=== PATIENT | female | born 1980 | race Caucasian/White ===

== ENCOUNTER 2016-11-28 10:52 | Emergency (ER) ==
[2016-11-28 11:20] LABS: MANUAL DIFF NEEDED? NO
[2016-11-28 11:22] LABS: BASO% 0.2 % (0.0-0.8); EOS# 0.07 X1000 (0.0-0.7); EOS% 1.6 % (0.0-10.0); HEMATOCRIT 40.4 % (37.0-47.0); HEMOGLOBIN 13.7 g/dL (12.0-16.0); IMM GRAN# 0.01 X1000 (0.0-0.04); IMM GRAN% 0.2 % (0.0-0.5); MCH 32.5 PG (27-31); MCHC 33.9 g/dL (33-37); MCV 95.7 FL (81-99); MONO% 8.9 % (1.7-9.3); MPV 10.4 FL (7.4-10.4); NEUT% 69.1 % (42.2-75.2); PLT 161 X1000 (130-400); RBC 4.22 XMIL (4.2-5.4)
--- NOTE | 2016-11-28 11:34 | PROVIDER DOCUMENTATION ---
HPI-Abdominal Pain/GI Problem <Karo Silverman Megan - Last Filed: 11/28/16 14:57> - General Source: patient - History of Present Illness-ABD Nature of Presenting Problems: Pt is a 36 yof that presents to er with cc of abd pain burning in nature epigastric region. Reports been taking omeprazole with no relief. Reports diarrhea and nausea. Denies n,f,c. Abdominal Pain Onset Location: reports: epigastric Quality of Pain: reports: burning Severity in ED: reports: moderate Onset/Duration: reports: 4 days ago Timing: reports: still present Similar Symptoms Previously?: Yes Recently seen or treated by another doctor?: No <Christiano Arcos - Last Filed: 11/28/16 16:23> - General Chief Complaint: Abdominal Pain Stated Complaint: ABD PAIN Time Seen by Provider: 11/28/16 11:19 Allergies/Adverse Reactions: Patient Allergies Allergy/AdvReac Type Severity Reaction Status Date / Time cefaclor [From Ceclor] Allergy Severe SWELLING Verified 05/16/15 16:19 erythromycin base Allergy Severe SWELLING Verified 05/16/15 16:19 [Erythromycin Base] Home Medications: Home Medication List Medication Instructions Recorded Confirmed Last Taken Type Topiramate [Topamax] 200 mg PO BID 05/16/15 05/16/15 11/27/16 History Nitrofurantoin Monohyd/M-Cryst 100 mg PO BID #20 capsule 11/28/16 Unknown Rx [Macrobid 100 mg Capsule] Omeprazole/Sodium Bicarbonate 40 mg PO DAILY #20 capsule 11/28/16 Unknown Rx [Zegerid 40 mg] Review of Systems - Adult - REVIEW OF SYSTEMS - ADULT Constitutional: denies: chills, fever, fatique Eyes: reports: no symptoms reported Ears, Nose, Mouth & Throat: reports: no symptoms reported Cardiovascular: denies: chest pain, irregular heart rate, orthopnea, syncope Respiratory: denies: cough, shortness of breath, wheezing Gastrointestinal: reports: abdominal pain, diarrhea, nausea. denies: difficulty swallowing, frequent heartburn, poor appetite, vomiting Genitourinary: reports: no symptoms reported Musculoskeletal: denies: bone pain, joint pain, joint swelling Integumentary: reports: no symptoms reported Neurological: reports: no symptoms reported Psychiatric: reports: no symptoms reported Endocrine: reports: no symptoms reported Hematologic/Lymphatic: reports: no symptoms reported Allergic/Immunologic: reports: no symptoms reported All Other Systems: Reviewed and Negative <ArcosChristiano - Last Filed: 11/28/16 16:23> Past History - Adult - PAST MEDICAL HISTORY-ADULT Review of Records: reports: Nursing Assessment Review Major Childhood Illnesses: reports: denies history Cardiovascular: reports: denies history Neurological: reports: Seizures/Epilepsy - PRIOR SURGERIES/PROCEDURES Surgical/Procedure History: reports: hysterectomy, BTL, , other ( oopherectomy) - PRIOR HOSPITALIZATIONS Prior Hospitalizations: reports: none - IMMUNIZATION STATUS Childhood Immunizations: See Nurse Assessment Flu Vaccine: See Nurse Assessment - FAMILY HISTORY Family History: reviewed, not pertinent - SOCIAL HISTORY Smoking: denies Substance Use: none/never <ArcosChristiano - Last Filed: 11/28/16 16:23> Physical Exam-General - PHYSICAL EXAM-ADULT Initial Vital Signs Reviewed: Yes - CONSTITUTIONAL General Appearance: appears well, alert, no apparent distress - EYES Eyes: PERRL/EOMI - NECK Neck: non-tender, full range of motion, supple, normal inspection - RESPIRATORY Respiratory: chest non-tender, lungs clear, normal breath sounds, no pleuratic chest pain, no respiratory distress, no accessory muscle use - CARDIOVASCULAR Cardiovascular: regular rate, rhythm - GASTROINTESTINAL (ABDOMEN) Abdominal Exam: soft, no organomegaly, tenderness (ttp epigastric) - MUSCULOSKELETAL Back Exam: normal inspection, no CVA tenderness, no vertebral tenderness Extremity: normal range of motion, non-tender, normal gait - SKIN Integumentary: normal color, normal turgor, warm/dry - PSYCHIATRIC Psych/Mental Status: normal mood/affect, normal thought content, normal thought process, oriented x 3 <Christiano Arcos - Last Filed: 11/28/16 16:23> Progress - PLAN OF CARE/RESULTS Progress/Plan/Lab Results: 1450: Discussed patient care with Dr. Sewell <Karo Silverman - Last Filed: 11/28/16 14:57> - PLAN OF CARE/RESULTS Progress/Plan/Lab Results: Orders Category Date Time Status NPO Diet 11/28/16 10:56 Active AMYLASE [CHEM] Stat Lab 11/28/16 11:14 Received CBC WITH ELECTRONIC DIFF [HEME] Stat Lab 11/28/16 11:14 Completed COMPREHENSIVE METABOLIC PANEL [CHEM] Stat Lab 11/28/16 11:14 Received LIPASE [CHEM] Stat Lab 11/28/16 11:14 Received TEST-URINE [PREG] Stat Lab 11/28/16 11:[address] W/POSS RFLX CULT [URINALYSIS] Stat Lab 11/28/16 10:56 Uncollected Vital Signs - 24 hr 11/28/16 11/28/16 10:56 11:17 Temperature 98.5 F Pulse Rate 80 Respiratory 22 Rate Blood Pressure 102/85 O2 Sat by Pulse 100 Oximetry Laboratory Tests 11/28/16 11:14 WBC 4.50 L RBC 4.22 Hgb 13.7 Hct 40.4 MCV 95.7 MCH 32.5 H MCHC 33.9 RDW Std Deviation 12.9 Plt Count 161 MPV 10.4 Immature Gran % (Auto) 0.2 Neut % (Auto) 69.1 Lymph % (Auto) 20.0 L [place] % (Auto) 8.9 Eos % (Auto) 1.6 Baso % (Auto) 0.2 Immature Gran # (Auto) 0.01 Neut # (Auto) 3.11 Lymph # (Auto) 0.90 L [place] # (Auto) 0.40 Eos # (Auto) 0.07 Baso # (Auto) 0.01 Laboratory Tests 11/28/16 11/28/16 11/28/16 11:14 11:14 12:49 WBC 4.50 L RBC 4.22 Hgb 13.7 Hct 40.4 MCV 95.7 MCH 32.5 H MCHC 33.9 RDW Std Deviation 12.9 Plt Count 161 MPV 10.4 Immature Gran % (Auto) 0.2 Neut % (Auto) 69.1 Lymph % (Auto) 20.0 L [place] % (Auto) 8.9 Eos % (Auto) 1.6 Baso % (Auto) 0.2 Immature Gran # (Auto) 0.01 Neut # (Auto) 3.11 Lymph # (Auto) 0.90 L [place] # (Auto) 0.40 Eos # (Auto) 0.07 Baso # (Auto) 0.01 Sodium 144 Potassium 3.7 Chloride 111 H Carbon Dioxide 23 L Anion Gap 10 BUN 10 Creatinine 0.8 Estimated GFR/1.73 m2 > 60 BUN/Creatinine Ratio 13 Glucose 117 H Calculated Osmolality 287 Calcium 9.0 Total Bilirubin 0.40 AST 13 ALT 7 L Alkaline Phosphatase 82 Creatine Kinase Troponin T Total Protein 6.5 Albumin 4.1 Globulin 2.0 Albumin/Globulin Ratio 2.0 Amylase 44 Lipase 51 Urine Source CLEAN CATCH Urine Color YELLOW Urine Clarity CLEAR Urine pH 7.0 Ur Specific [place] 1.005 Urine Protein TRACE A Urine Ketones NEGATIVE Urine Blood 1+ A Urine Nitrite NEGATIVE Urine Bilirubin NEGATIVE Urine Urobilinogen NORMAL Urine Microscopic RBC <10 Urine WBC 2+ A Urine Microscopic WBC 10-20 A Ur Epithelial Cells >10 A Urine Bacteria 2+ Urine Glucose NEGATIVE Urine Test 11/28/16 11/28/16 11/28/16 12:49 14:17 14:17 WBC RBC Hgb Hct MCV MCH MCHC RDW Std Deviation Plt Count MPV Immature Gran % (Auto) Neut % (Auto) Lymph % (Auto) [place] % (Auto) Eos % (Auto) Baso % (Auto) Immature Gran # (Auto) Neut # (Auto) Lymph # (Auto) [place] # (Auto) Eos # (Auto) Baso # (Auto) Sodium Potassium Chloride Carbon Dioxide Anion Gap BUN Creatinine Estimated GFR/1.73 m2 BUN/Creatinine Ratio Glucose Calculated Osmolality Calcium Total Bilirubin AST ALT Alkaline Phosphatase Creatine Kinase 35 Troponin T < 0.010 Total Protein Albumin Globulin Albumin/Globulin Ratio Amylase Lipase Urine Source Urine Color Urine Clarity Urine pH Ur Specific [place] Urine Protein Urine Ketones Urine Blood Urine Nitrite Urine Bilirubin Urine Urobilinogen Urine Microscopic RBC Urine WBC Urine Microscopic WBC Ur Epithelial Cells Urine Bacteria Urine Glucose Urine Test NEGATIVE Laboratory Tests 11/28/16 11/28/16 11/28/16 11:14 11:14 12:49 WBC 4.50 L RBC 4.22 Hgb 13.7 Hct 40.4 MCV 95.7 MCH 32.5 H MCHC 33.9 RDW Std Deviation 12.9 Plt Count 161 MPV 10.4 Immature Gran % (Auto) 0.2 Neut % (Auto) 69.1 Lymph % (Auto) 20.0 L [place] % (Auto) 8.9 Eos % (Auto) 1.6 Baso % (Auto) 0.2 Immature Gran # (Auto) 0.01 Neut # (Auto) 3.11 Lymph # (Auto) 0.90 L [place] # (Auto) 0.40 Eos # (Auto) 0.07 Baso # (Auto) 0.01 Sodium 144 Potassium 3.7 Chloride 111 H Carbon Dioxide 23 L Anion Gap 10 BUN 10 Creatinine 0.8 Estimated GFR/1.73 m2 > 60 BUN/Creatinine Ratio 13 Glucose 117 H Calculated Osmolality 287 Calcium 9.0 Total Bilirubin 0.40 AST 13 ALT 7 L Alkaline Phosphatase 82 Creatine Kinase Troponin T Total Protein 6.5 Albumin 4.1 Globulin 2.0 Albumin/Globulin Ratio 2.0 Amylase 44 Lipase 51 Urine Source CLEAN CATCH Urine Color YELLOW Urine Clarity CLEAR Urine pH 7.0 Ur Specific [place] 1.005 Urine Protein TRACE A Urine Ketones NEGATIVE Urine Blood 1+ A Urine Nitrite NEGATIVE Urine Bilirubin NEGATIVE Urine Urobilinogen NORMAL Urine Microscopic RBC <10 Urine WBC 2+ A Urine Microscopic WBC 10-20 A Ur Epithelial Cells >10 A Urine Bacteria 2+ Urine Glucose NEGATIVE Urine Test 11/28/16 11/28/16 11/28/16 12:49 14:17 14:17 WBC RBC Hgb Hct MCV MCH MCHC RDW Std Deviation Plt Count MPV Immature Gran % (Auto) Neut % (Auto) Lymph % (Auto) [place] % (Auto) Eos % (Auto) Baso % (Auto) Immature Gran # (Auto) Neut # (Auto) Lymph # (Auto) [place] # (Auto) Eos # (Auto) Baso # (Auto) Sodium Potassium Chloride Carbon Dioxide Anion Gap BUN Creatinine Estimated GFR/1.73 m2 BUN/Creatinine Ratio Glucose Calculated Osmolality Calcium Total Bilirubin AST ALT Alkaline Phosphatase Creatine Kinase 35 Troponin T < 0.010 Total Protein Albumin Globulin Albumin/Globulin Ratio Amylase Lipase Urine Source Urine Color Urine Clarity Urine pH Ur Specific [place] Urine Protein Urine Ketones Urine Blood Urine Nitrite Urine Bilirubin Urine Urobilinogen Urine Microscopic RBC Urine WBC Urine Microscopic WBC Ur Epithelial Cells Urine Bacteria Urine Glucose Urine Test NEGATIVE - CT/MRI 1 CT Study: Abdomen, Pelvis Impression: Abnormal (bilateral nonobstructing nephrolithiasis. other incidental nonacute findings detailed above but no definite acute pathology.) <Christiano Arcos - Last Filed: 11/28/16 16:23> Departure - Departure Time of Disposition Order: 14:06 Certified Medical Emergency: Emergent <Karo Silverman - Last Filed: 11/28/16 14:57> - Departure Time of Disposition Order: 16:23 Certified Medical Emergency: Emergent <Christiano Arcos - Last Filed: 11/28/16 16:23> - Departure DIAGNOSIS: Epigastric pain Disposition: HOME 01 Condition: Stable Additional Instructions: ED Follow Up Instructions: You have been treated by a care provider in the Emergency Department. These instructions are being provided to you so you can have an understanding of how to care for yourself upon discharge. Upon discharge from the Emergency Department, you are responsible for making arrangements for follow-up care by a physician of your choice. Take all prescribed medications as directed. Return to the Emergency Department immediately for any new or worsening symptoms. You may call the Physician Referral phone number at [phone] to obtain a list of Physicians who are taking new patients. Prescriptions: Nitrofurantoin Monohyd/M-Cryst [Macrobid 100 mg Capsule] 100 mg PO BID #20 capsule Omeprazole/Sodium Bicarbonate [Zegerid 40 mg] 40 mg PO DAILY #20 capsule Referrals: None,PCP [Primary Care Provider] - Clementine Dubose MD [STAFF PHYSICIAN] - Forms: Return to School/Parent Work Instructions: Nitrofurantoin tablets or capsules, Heartburn, Omeprazole tablets (OTC) Attestation - Physician/ MELISSA Attestation Patient care was provided by Advanced Practice Provider:: Yes Advanced Practice Provider:: Karo Silverman Advanced Practice Provider documentation review:: The Mid-level provider documentation, treatment plan and medical decision making was reviewed by the physician who agrees with all treatment and medical decision making by the [facility]. <Karo Silverman - Last Filed: 11/28/16 14:57> - Scribe Verification/Attestation Scribe:: Christiano Arcos Acting as Scribe for:: Karo Silverman Scribe documention review:: This chart was documented by a scribe and accurately reflects the service the provider performed and the decisions made by the provider. <Christiano Arcos - Last Filed: 11/28/16 16:23> Physician Attestation
[2016-11-28 11:37] LABS: AGAP 10; ALBUMIN 4.1 g/dL (3.5-5.0); ALKALINE PHOSPHATASE 82 U/L (32-104); AMYLASE 44 U/L (20-200); BUN 10 mg/dL (8-22); CHLORIDE 111 mmol/L (98-107); COSMO 287; GOT 13 U/L (10-30); GPT 7 U/L (10-36); LIPASE 51 U/L (13-60); POTASSIUM 3.7 mmol/L (3.5-5.1); SODIUM 144 mmol/L (136-145); TCO2 23 mmol/L (25-35); TOTAL PROTEIN 6.5 g/dL (6.3-8.3)
[2016-11-28 12:55] LABS: URINE SOURCE CLEAN CATCH
[2016-11-28 13:07] LABS: BILIRUBIN URINE NEGATIVE (NEGATIVE); BLOOD URINE 1+ (NEGATIVE); CLARITY CLEAR (CLEAR); COLOR YELLOW; GLUCOSE URINE NEGATIVE (NEGATIVE); LEUKOCYTES URINE 2+ (NEGATIVE); NITRITE URINE NEGATIVE (NEGATIVE); PROTEIN URINE TRACE mg/dL (NEGATIVE); SP GRAVITY URINE 1.005; UROBILINOGEN URINE NORMAL
[2016-11-28 13:08] LABS: URINE CULTURE PL NEEDED? YES; URINE EPITHELIAL CELLS >10 /HPF (<10); URINE RBC <10 /HPF (<10)
[2016-11-28] MEDS ORDERED: ZOFRAN ODT PO ONE (13:28)
--- NOTE | 2016-11-28 13:49 | EKG Report ---
Test Performed on : 11/28/2016 1:34:49 PM Test Reason : epigastric burning Blood Pressure : / mmHG Vent. Rate : 067 BPM Atrial Rate : 067 BPM P-R Int : 130 ms QRS Dur : 076 ms QT Int : 422 ms P-R-T Axes : -22 090 040 degrees QTc Int : 445 ms Normal sinus rhythm. Rightward axis Borderline ECG When compared with ECG of 28-NOV-2016 13:34, (Unconfirmed) Sinus rhythm. has replaced Junctional rhythm. Unconfirmed Result
[2016-11-28] MEDS ORDERED: ZEGERID 20 MG PO ONE (14:08)
[2016-11-28 14:14] VITALS: BP 104/73
--- NOTE | 2016-11-28 16:06 | Diag Imaging Result Document ---
PROCEDURE NAME: CT ABD/PELVIS W/ IV CONT ONLY - 11/28/2016 CT ABDOMEN AND PELVIS WITH IV CONTRAST: COMPARISON: 11/09/2013. FINDINGS: There are several nonobstructing intrarenal stones bilaterally. There is minimal prominence of the left renal collecting system as compared to the right. However, this is stable and is assumed to be chronic. There is no evidence of acute hydronephrosis. There is no evidence of appendicitis. There is trace free fluid in the pelvis, usually physiologic. 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 There is no evidence of bowel obstruction. The urinary bladder is unremarkable. No discrete adnexal masses are appreciated. No focal inflammatory changes or free abdominal gas is identified. The remainder of the solid viscera of the abdomen and pelvis and the remainder of the GI tract is essentially unremarkable. IMPRESSION: 1. Bilateral nonobstructing nephrolithiasis. 2. Other incidental/nonacute findings detailed above but no definite acute pathology.
[2016-11-28] MEDS ORDERED: NORCO-7.5 PO ONE (16:42)
[2016-11-28] MEDS ORDERED: TORADOL IM STA (16:52)
== END 2016-11-28 17:17 | disposition home or self-care (01) ==
LOC: P.ED 10:52
DX: R10.13 Epigastric pain (principal); N20.0 Calculus of kidney; R19.7 Diarrhea, unspecified; R11.0 Nausea; R10.816 Epigastric abdominal tenderness; R56.9 Unspecified convulsions; Z79.899 Other long term (current) drug therapy
CPT/HCPCS: 36415; 74177; 80053; 81001; 81025; 82150; 82550; 83690; 84484; 85025; 87088; 93005; 96372; J1885; Q9967

== ENCOUNTER 2016-12-09 11:39 | Emergency (ER) ==
[2016-12-09] MEDS ORDERED: DILAUDID IM ONE (11:53)
[2016-12-09] MEDS ORDERED: SODIUM CHLORIDE 0.9% INJ ONE (11:54)
[2016-12-09] MEDS ORDERED: PHENERGAN IV ONE (11:54)
[2016-12-09] MEDS ORDERED: NS 1,000 ML IV ONE (11:54)
[2016-12-09] MEDS ORDERED: MORPHINE IV ONE (11:54)
--- NOTE | 2016-12-09 12:02 | PROVIDER DOCUMENTATION ---
HPI-Abdominal Pain/GI Problem - General Source: patient - History of Present Illness-ABD Nature of Presenting Problems: Pt is 36 y/o F presents to the ED with LLQ. Pt states pain radiates to mid abdomen and back. Pt states chronic back pain and takes perc 10s and it has not helped pain. Pt states N but denies V. Pt state LMP was earlier this month. Pt denies F but has chills. Abdominal Pain Onset Location: reports: LLQ Pain Radiation: reports: back, other (mid abdomen) Quality of Pain: reports: cramping Severity in ED: reports: severe Onset/Duration: reports: this morning Timing: reports: still present, intermittent Activities at Onset: reports: light activity Exposure to sick contacts?: No Modifying Factors: improves with: nothing Associated Symptoms: reports: back/neck pain (back), fever/chills (chills), nausea, vomiting. denies: anxiety, arm pain, chest pain, constipation, cough, diaphoresis, diarrhea, dizziness, EENT symptoms, fatigue, genitourinary problems , headaches, heartburn, joint pain, loss of appetite, malaise, muscle aches, sinus congestion/drainage, rash, seizure, shortness of breath, sensory/motor loss, pain with inspiration, swelling/mass in abdomen, syncope, weakness, trouble walking Last BM: unsure Dark Stools Present?: reports: none noticed Rectal Bleeding: reports: none Rectal Pain: reports: none Emesis Description: reports: clear Bruising or Bleeding Gums?: No Similar Symptoms Previously?: No Recently seen or treated by another doctor?: No <Mee Quezada - Last Filed: 12/09/16 11:56> <Melina Jennings - Last Filed: 12/09/16 14:06> - General Chief Complaint: Abdominal Pain Stated Complaint: ABD PAIN Time Seen by Provider: 12/09/16 11:49 Allergies/Adverse Reactions: Patient Allergies Allergy/AdvReac Type Severity Reaction Status Date / Time cefaclor [From Ceclor] Allergy Severe SWELLING Verified 12/09/16 11:45 erythromycin base Allergy Severe SWELLING Verified 12/09/16 11:45 [Erythromycin Base] Home Medications: Home Medication List Medication Instructions Recorded Confirmed Last Taken Type Topiramate [Topamax] 200 mg PO BID 05/16/15 12/09/1617 History Oxycodone HCl/Acetaminophen 1 each PO PRN PRN 12/03/16 12/09/16 Unknown History [Percocet 10-325 mg Tablet] Pantoprazole [Protonix] 40 mg PO DAILY@0700 12/03/16 12/09/16 Unknown History Pregabalin [Lyrica] 25 mg PO HS 12/03/16 12/09/16 Unknown History Sertraline HCl [Zoloft] 100 mg PO DAILY 12/03/16 12/09/16 Unknown History Sucralfate 1 gm PO 4XDAY 12/03/16 12/09/16 Unknown History Dicyclomine [Bentyl] 10 mg PO TID AC #30 capsule 12/09/16 Unknown Rx Naloxegol Oxalate [Movantik] 12.5 mg PO DAILY #20 tablet 12/09/16 Unknown Rx Sulfamethoxazole/Trimethoprim 1 each PO BID #10 tablet 12/09/16 Unknown Rx [Bactrim Ds Tablet] Review of Systems - Adult - REVIEW OF SYSTEMS - ADULT Constitutional: reports: chills. denies: fever Eyes: reports: no symptoms reported Ears, Nose, Mouth & Throat: reports: no symptoms reported Cardiovascular: reports: no symptoms reported Respiratory: reports: no symptoms reported Gastrointestinal: reports: abdominal pain (LLQ), nausea, vomiting. denies: diarrhea Genitourinary: reports: no symptoms reported Musculoskeletal: reports: back pain. denies: bone pain, joint pain Integumentary: reports: no symptoms reported Neurological: reports: no symptoms reported Psychiatric: reports: no symptoms reported Endocrine: reports: no symptoms reported Hematologic/Lymphatic: reports: no symptoms reported Allergic/Immunologic: reports: no symptoms reported All Other Systems: Reviewed and Negative <Mee Quezada - Last Filed: 12/09/16 11:56> Past History - Adult - PAST MEDICAL HISTORY-ADULT Review of Records: reports: Nursing Assessment Review, Medications Reviewed, Social history reviewed & non-contributory. Major Childhood Illnesses: reports: denies history Cardiovascular: reports: denies history Respiratory: reports: denies history Gastrointestinal: reports: denies history Obstetrical/Gynecological: reports: denies history Genitourinary: reports: denies history Musculoskeletal: reports: denies history Neurological: reports: Seizures/Epilepsy Endocrine/Immune: reports: denies history Other Conditions: reports: denies history - PRIOR SURGERIES/PROCEDURES Surgical/Procedure History: reports: hysterectomy, BTL, , other ( oopherectomy) - PRIOR HOSPITALIZATIONS Prior Hospitalizations: reports: none - IMMUNIZATION STATUS Childhood Immunizations: See Nurse Assessment Flu Vaccine: See Nurse Assessment - FAMILY HISTORY Family History: reviewed, not pertinent - SOCIAL HISTORY Smoking: denies Substance Use: denies Living Situation: family <Mee Quezada - Last Filed: 12/09/16 11:56> Physical Exam-General - PHYSICAL EXAM-ADULT Initial Vital Signs Reviewed: Yes - CONSTITUTIONAL General Appearance: alert, severe distress, anxious - EYES Eyes: PERRL/EOMI, pink conjunctivae, fundi clear, no AV nicking - HEAD, EARS, NOSE, MOUTH & THROAT HENMT: normocephalic/atraumatic, moist mucous membranes, normal ENT inspection, TMs normal, pharynx normal - NECK Neck: non-tender, full range of motion, supple, normal inspection - RESPIRATORY Respiratory: chest non-tender, lungs clear, normal breath sounds, no pleuratic chest pain, no respiratory distress, no accessory muscle use - CARDIOVASCULAR Cardiovascular: normal peripheral pulses, regular rate, rhythm, no edema, no gallop, no JVD, no murmur - GASTROINTESTINAL (ABDOMEN) Abdominal Exam: normal bowel sounds, soft, no organomegaly, no pulsatile mass, guarding, tenderness (LLQ) - LYMPHATIC Lymphatic: no adenopathy - MUSCULOSKELETAL Back Exam: normal inspection, no CVA tenderness, no vertebral tenderness Extremity: normal range of motion, non-tender, normal gait, normal inspection, no pedal edema, no calf tenderness, normal capillary refill - SKIN Integumentary: normal color, normal turgor, warm/dry - NEUROLOGIC Neurologic: grossly normal - PSYCHIATRIC Psych/Mental Status: oriented x 3, anxious, tearful <Mee Quezada - Last Filed: 12/09/16 11:56> Progress - PLAN OF CARE/RESULTS Progress/Plan/Lab Results: Orders Category Date Time Status Saline Loc NOW Care 12/09/16 11:53 Active NPO Diet 12/09/16 11:[address] ABD/PELVIS W/ IV CONT ONLY [CT] Stat Exams 12/09/16 11:53 Ordered AMYLASE [CHEM] Stat Lab 12/09/16 11:49 Ordered CBC WITH ELECTRONIC DIFF [HEME] Stat Lab 12/09/16 11:49 Ordered COMPREHENSIVE METABOLIC PANEL [CHEM] Stat Lab 12/09/16 11:49 Ordered LIPASE [CHEM] Stat Lab 12/09/16 11:[address] W/POSS RFLX CULT [URINALYSIS] Stat Lab 12/09/16 11:49 Uncollected 0.9% Sodium Chloride Inj [Ns] 1,000 ml Med 12/09/16 11:54 Active IV 999 mls/hr Hydromorphone [Dilaudid] Med 12/09/16 11:53 Discontinued 0.5 mg IM NOW ONE Morphine Med 12/09/16 11:54 Discontinued 2 mg IV NOW ONE Promethazine [Phenergan] Med 12/09/16 11:54 Discontinued 12.5 mg IV NOW ONE Sodium Chloride 0.9% Med 12/09/16 11:54 Discontinued 10 ml INJ NOW ONE Vital Signs - 24 hr 12/09/16 11:40 Temperature 98.7 F Pulse Rate 81 Respiratory 16 Rate Blood Pressure 124/87 O2 Sat by Pulse 99 Oximetry <Mee Quezada - Last Filed: 12/09/16 11:56> - PLAN OF CARE/RESULTS Progress/Plan/Lab Results: Vital Signs Temp Pulse Resp BP Pulse Ox 12/09/16 11:40 98.7 F 81 16 124/87 99 cefaclor [From Ceclor] Allergy (Severe, Verified 12/09/16 11:45) SWELLING erythromycin base [Erythromycin Base] Allergy (Severe, Verified 12/09/16 11:45) SWELLING Topiramate [Topamax] 200 mg PO BID 05/16/15 Oxycodone HCl/Acetaminophen [Percocet 10-325 mg Tablet] 1 each PO PRN PRN Pantoprazole [Protonix] 40 mg PO DAILY@0700 12/03/16 Pregabalin [Lyrica] 25 mg PO HS 12/03/16 Sertraline HCl [Zoloft] 100 mg PO DAILY 12/03/16 Sucralfate 1 gm PO 4XDAY 12/03/16 Dietary Diet NPO Start FriDec 09 1149 Laboratory 12/09/16 12/09/16 12/09/16 13:25 12:07 12:07 WBC 4.80 RBC 4.11 L Hgb 13.3 Hct 38.9 MCV 94.6 MCH 32.4 H MCHC 34.2 RDW Std Deviation 13.2 Plt Count 163 MPV 9.3 Immature Gran % (Auto) 0.0 Neut % (Auto) 54.2 Lymph % (Auto) 30.6 [place] % (Auto) 13.8 H Eos % (Auto) 0.8 Baso % (Auto) 0.6 Immature Gran # (Auto) 0.00 Neut # (Auto) 2.60 Lymph # (Auto) 1.47 [place] # (Auto) 0.66 H Eos # (Auto) 0.04 Baso # (Auto) 0.03 Sodium 138 Potassium 3.4 L Chloride 107 Carbon Dioxide 22 L Anion Gap 9 BUN 10 Creatinine 0.7 Estimated GFR/1.73 m2 > 60 BUN/Creatinine Ratio 14 Glucose 75 Calculated Osmolality 273 Calcium 9.0 Total Bilirubin 0.20 AST 13 ALT 8 L Alkaline Phosphatase 69 Total Protein 6.5 Albumin 4.3 Globulin 2.0 Albumin/Globulin Ratio 2.0 Amylase 48 Lipase 51 Urine Source CLEAN CATCH Urine Color YELLOW Urine Clarity SL. CLOUDY A Urine pH 7.0 Ur Specific [place] 1.010 Urine Protein TRACE A Urine Ketones NEGATIVE Urine Blood 4+ Urine Nitrite NEGATIVE Urine Bilirubin NEGATIVE Urine Urobilinogen NORMAL Urine WBC TRACE A Urine Glucose NEGATIVE Orders Category Date Time Status Saline Loc NOW Care 12/09/16 11:53 Active NPO Diet 12/09/16 11:49 Active FLAT/UPRIGHT ABD/1 VIEW CHEST [RAD] Stat Exams 12/09/16 12:07 Completed AMYLASE [CHEM] Stat Lab 12/09/16 12:07 Completed CBC WITH ELECTRONIC DIFF [HEME] Stat Lab 12/09/16 12:07 Completed COMPREHENSIVE METABOLIC PANEL [CHEM] Stat Lab 12/09/16 12:07 Completed LIPASE [CHEM] Stat Lab 12/09/16 12:[address] W/POSS RFLX CULT [URINALYSIS] Stat Lab 12/09/16 13:25 Results 0.9% Sodium Chloride Inj [Ns] 1,000 ml Med 12/09/16 11:54 Discontinued IV 999 mls/hr Hydromorphone [Dilaudid] Med 12/09/16 11:53 Discontinued 0.5 mg IM NOW ONE Morphine Med 12/09/16 11:54 Discontinued 2 mg IV NOW ONE Promethazine [Phenergan] Med 12/09/16 11:54 Discontinued 12.5 mg IV NOW ONE Sodium Chloride 0.9% Med 12/09/16 11:54 Discontinued 10 ml INJ NOW ONE patient has had multiple CT scans, with most recent being within the last couple weeks. Will not repeat due normal lab work - REASSESSMENT Reassessment #1 Time Reassessed: 12:23 (Pain much improved at this point, patient resting comfortably) Status: improving <Melina Jennings - Last Filed: 12/09/16 14:06> Departure <Mee Quezada - Last Filed: 12/09/16 11:56> - Departure Time of Disposition Order: 14:02 Certified Medical Emergency: Emergent <Melina Jennings - Last Filed: 12/09/16 14:06> - Departure DIAGNOSIS: Acute UTI Abdominal pain Qualifiers: Abdominal location: left lower quadrant Qualified Code(s): R10.32 - Left lower quadrant pain Constipation Qualifiers: Constipation type: slow transit constipation Qualified Code(s): K59.01 - Slow transit constipation Disposition: HOME 01 Condition: Stable Additional Instructions: Follow up with your GI doctor for your endoscopy. ED Follow Up Instructions: You have been treated by a care provider in the Emergency Department. These instructions are being provided to you so you can have an understanding of how to care for yourself upon discharge. Upon discharge from the Emergency Department, you are responsible for making arrangements for follow-up care by a physician of your choice. Take all prescribed medications as directed. Return to the Emergency Department immediately for any new or worsening symptoms. You may call the Physician Referral phone number at [phone] to obtain a list of Physicians who are taking new patients. Prescriptions: Sulfamethoxazole/Trimethoprim [Bactrim Ds Tablet] 1 each PO BID #10 tablet Dicyclomine [Bentyl] 10 mg PO TID AC #30 capsule Naloxegol Oxalate [Movantik] 12.5 mg PO DAILY #20 tablet Referrals: None,PCP [Primary Care Provider] - Attestation - Scribe Verification/Attestation Scribe:: Mee Quezada Acting as Scribe for:: Melina Jennings Scribe documention review:: This chart was documented by a scribe and accurately reflects the service the provider performed and the decisions made by the provider. <Mee Quezada - Last Filed: 12/09/16 11:56> Physician Attestation
[2016-12-09 12:07] LABS: MANUAL DIFF NEEDED? NO
[2016-12-09 12:10] LABS: BASO% 0.6 % (0.0-0.8); EOS# 0.04 X1000 (0.0-0.7); EOS% 0.8 % (0.0-10.0); HEMATOCRIT 38.9 % (37.0-47.0); HEMOGLOBIN 13.3 g/dL (12.0-16.0); LYMPH# 1.47 X1000 (1.2-3.4); LYMPH% 30.6 % (20.5-51.1); MCH 32.4 PG (27-31); MCHC 34.2 g/dL (33-37); MCV 94.6 FL (81-99); MONO# 0.66 X1000 (0.11-0.59); MONO% 13.8 % (1.7-9.3); MPV 9.3 FL (7.4-10.4); NEUT% 54.2 % (42.2-75.2); PLT 163 X1000 (130-400); RBC 4.11 XMIL (4.2-5.4)
[2016-12-09 12:27] LABS: AGAP 9; ALBUMIN 4.3 g/dL (3.5-5.0); ALKALINE PHOSPHATASE 69 U/L (32-104); AMYLASE 48 U/L (20-200); BUN 10 mg/dL (8-22); CHLORIDE 107 mmol/L (98-107); COSMO 273; GOT 13 U/L (10-30); GPT 8 U/L (10-36); LIPASE 51 U/L (13-60); POTASSIUM 3.4 mmol/L (3.5-5.1); SODIUM 138 mmol/L (136-145); TCO2 22 mmol/L (25-35); TOTAL PROTEIN 6.5 g/dL (6.3-8.3)
--- NOTE | 2016-12-09 12:42 | Diag Imaging Result Document ---
PROCEDURE NAME: FLAT/UPRIGHT ABD/1 VIEW CHEST - 12/09/2016 FLAT AND UPRIGHT AND CHEST, FOUR VIEWS: COMPARISON: The chest is compared to 09/09/2016. FINDINGS: The lungs are well expanded. The heart is not enlarged. No pneumonia. No free air beneath the diaphragm. No bowel obstruction. No organomegaly. Mild scoliosis. IMPRESSION: No acute abnormality.
[2016-12-09 13:42] LABS: URINE SOURCE CLEAN CATCH
[2016-12-09 14:01] LABS: BILIRUBIN URINE NEGATIVE (NEGATIVE); BLOOD URINE 4+ (NEGATIVE); CLARITY SL. CLOUDY (CLEAR); COLOR YELLOW; GLUCOSE URINE NEGATIVE (NEGATIVE); LEUKOCYTES URINE TRACE (NEGATIVE); NITRITE URINE NEGATIVE (NEGATIVE); PROTEIN URINE TRACE mg/dL (NEGATIVE); UROBILINOGEN URINE NORMAL
[2016-12-09 14:09] LABS: URINE CULTURE PL NEEDED? YES; URINE EPITHELIAL CELLS <10 /HPF (<10); URINE RBC 20-40 /HPF (<10); URINE WBC <10 /HPF (<10)
[2016-12-09 15:11] VITALS: BP 132/066
[2016-12-09] MEDS ORDERED: MORPHINE IM ONE (15:46)
--- NOTE | 2016-12-09 16:21 | PROVIDER DOCUMENTATION ---
HPI-Abdominal Pain/GI Problem - General Source: patient - History of Present Illness-ABD Nature of Presenting Problems: Pt is a 36 yof who came to the ED with a cc of abdominal pain. Pt reports she was here earlier today and was not satisfied with her 1st visit. Pt reports she wanted to come back because her abdominal pain has not resolved. Pt reports she has an appointment with Dr. Mccoy for an EGD in three days. Abdominal Pain Onset Location: reports: epigastric, suprapubic, generalized abdomen Pain Radiation: reports: no radiation Quality of Pain: reports: sharp Severity in ED: reports: mild Onset/Duration: reports: unsure Timing: reports: still present Activities at Onset: reports: none Last BM: unsure Dark Stools Present?: reports: none noticed Rectal Bleeding: reports: bleeding without stool Bruising or Bleeding Gums?: No Similar Symptoms Previously?: Yes Recently seen or treated by another doctor?: Yes <Ana Paula Chowdhury - Last Filed: 12/09/16 16:17> <Tomasa Al - Last Filed: 12/09/16 16:48> - General Chief Complaint: Abdominal Pain Stated Complaint: ABD PAIN Time Seen by Provider: 12/09/16 11:49 Allergies/Adverse Reactions: Patient Allergies Allergy/AdvReac Type Severity Reaction Status Date / Time cefaclor [From Ceclor] Allergy Severe SWELLING Verified 12/09/16 11:45 erythromycin base Allergy Severe SWELLING Verified 12/09/16 11:45 [Erythromycin Base] Home Medications: Home Medication List Medication Instructions Recorded Confirmed Last Taken Type Topiramate [Topamax] 200 mg PO BID 05/16/15 12/09/16 11/27/16 History Oxycodone HCl/Acetaminophen 1 each PO PRN PRN 12/03/16 12/09/16 Unknown History [Percocet 10-325 mg Tablet] Pantoprazole [Protonix] 40 mg PO DAILY@0700 12/03/16 12/09/16 Unknown History Pregabalin [Lyrica] 25 mg PO HS 12/03/16 12/09/16 Unknown History Sertraline HCl [Zoloft] 100 mg PO DAILY 12/03/16 12/09/16 Unknown History Sucralfate 1 gm PO 4XDAY 12/03/16 12/09/16 Unknown History Dicyclomine [Bentyl] 10 mg PO TID AC #30 capsule 12/09/16 Unknown Rx Naloxegol Oxalate [Movantik] 12.5 mg PO DAILY #20 tablet 12/09/16 Unknown Rx Sulfamethoxazole/Trimethoprim 1 each PO BID #10 tablet 12/09/16 Unknown Rx [Bactrim Ds Tablet] Review of Systems - Adult - REVIEW OF SYSTEMS - ADULT Constitutional: denies: chills, fever Eyes: denies: decreased vision, double vision Ears, Nose, Mouth & Throat: reports: no symptoms reported Cardiovascular: denies: chest pain, heart murmur Respiratory: reports: no symptoms reported Gastrointestinal: reports: abdominal pain. denies: diarrhea, nausea, vomiting Genitourinary: reports: no symptoms reported Musculoskeletal: reports: no symptoms reported Integumentary: reports: no symptoms reported Neurological: reports: no symptoms reported Psychiatric: reports: no symptoms reported Endocrine: reports: no symptoms reported Hematologic/Lymphatic: reports: no symptoms reported Allergic/Immunologic: reports: no symptoms reported All Other Systems: Reviewed and Negative <Ana Paula Chowdhury - Last Filed: 12/09/16 16:17> Past History - Adult - PAST MEDICAL HISTORY-ADULT Review of Records: reports: Old Records Reviewed, Nursing Assessment Review Major Childhood Illnesses: reports: denies history Cardiovascular: reports: denies history Respiratory: reports: denies history Gastrointestinal: reports: denies history Obstetrical/Gynecological: reports: denies history Genitourinary: reports: denies history Musculoskeletal: reports: denies history Neurological: reports: Seizures/Epilepsy Endocrine/Immune: reports: denies history Other Conditions: reports: denies history - PRIOR SURGERIES/PROCEDURES Surgical/Procedure History: reports: hysterectomy, BTL, , other ( oopherectomy) - PRIOR HOSPITALIZATIONS Prior Hospitalizations: reports: none - IMMUNIZATION STATUS Childhood Immunizations: See Nurse Assessment Flu Vaccine: See Nurse Assessment - FAMILY HISTORY Family History: reviewed, not pertinent - SOCIAL HISTORY Smoking: denies Substance Use: denies Living Situation: family <Ana Paula Chowdhury - Last Filed: 12/09/16 16:17> Physical Exam-General - PHYSICAL EXAM-ADULT Initial Vital Signs Reviewed: Yes - CONSTITUTIONAL General Appearance: alert, mild distress - EYES Eyes: PERRL/EOMI, pink conjunctivae - HEAD, EARS, NOSE, MOUTH & THROAT HENMT: normocephalic/atraumatic, moist mucous membranes - NECK Neck: non-tender, full range of motion - RESPIRATORY Respiratory: chest non-tender, lungs clear, normal breath sounds - CARDIOVASCULAR Cardiovascular: normal peripheral pulses, regular rate, rhythm - GASTROINTESTINAL (ABDOMEN) Abdominal Exam: soft, tenderness (Epigastric, suprapubic, all over) - MUSCULOSKELETAL Back Exam: normal inspection Extremity: normal range of motion - SKIN Integumentary: normal turgor - NEUROLOGIC Neurologic: grossly normal - PSYCHIATRIC Psych/Mental Status: normal mood/affect, normal thought content, normal thought process, oriented x 3 <Ana Paula Chowdhury - Last Filed: 12/09/16 16:17> Progress - PLAN OF CARE/RESULTS Progress/Plan/Lab Results: Vital Signs - 24 hr 12/09/16 12/09/16 11:40 14:00 Temperature 98.7 F 98.7 F Pulse Rate 81 78 Respiratory 16 20 Rate Blood Pressure 124/87 132/066 O2 Sat by Pulse 99 99 Oximetry Orders Category Date Time Status Saline Loc NOW Care 12/09/16 11:53 Active NPO Diet 12/09/16 11:49 Completed FLAT/UPRIGHT ABD/1 VIEW CHEST [RAD] Stat Exams 12/09/16 12:07 Completed RENAL STONE SEARCH [CT] Stat Exams 12/09/16 15:46 Taken AMYLASE [CHEM] Stat Lab 12/09/16 12:07 Completed CBC WITH ELECTRONIC DIFF [HEME] Stat Lab 12/09/16 12:07 Completed COMPREHENSIVE METABOLIC PANEL [CHEM] Stat Lab 12/09/16 12:07 Completed LIPASE [CHEM] Stat Lab 12/09/16 12:[address] W/POSS RFLX CULT [URINALYSIS] Stat Lab 12/09/16 13:25 Completed URINE CULTURE [RM] Routine Lab 12/09/16 14:09 Received URINE DRUG SCREEN PL Stat Lab 12/09/16 15:31 Ordered 0.9% Sodium Chloride Inj [Ns] 1,000 ml Med 12/09/16 11:54 Discontinued IV 999 mls/hr Hydromorphone [Dilaudid] Med 12/09/16 11:53 Discontinued 0.5 mg IM NOW ONE Morphine Med 12/09/16 11:54 Discontinued 2 mg IV NOW ONE Morphine Med 12/09/16 15:46 Discontinued 4 mg IM NOW ONE Promethazine [Phenergan] Med 12/09/16 11:54 Discontinued 12.5 mg IV NOW ONE Sodium Chloride 0.9% Med 12/09/16 11:54 Discontinued 10 ml INJ NOW ONE Laboratory Tests 12/09/16 12/09/16 12/09/16 12:07 12:07 13:25 WBC 4.80 RBC 4.11 L Hgb 13.3 Hct 38.9 MCV 94.6 MCH 32.4 H MCHC 34.2 RDW Std Deviation 13.2 Plt Count 163 MPV 9.3 Immature Gran % (Auto) 0.0 Neut % (Auto) 54.2 Lymph % (Auto) 30.6 [place] % (Auto) 13.8 H Eos % (Auto) 0.8 Baso % (Auto) 0.6 Immature Gran # (Auto) 0.00 Neut # (Auto) 2.60 Lymph # (Auto) 1.47 [place] # (Auto) 0.66 H Eos # (Auto) 0.04 Baso # (Auto) 0.03 Sodium 138 Potassium 3.4 L Chloride 107 Carbon Dioxide 22 L Anion Gap 9 BUN 10 Creatinine 0.7 Estimated GFR/1.73 m2 > 60 BUN/Creatinine Ratio 14 Glucose 75 Calculated Osmolality 273 Calcium 9.0 Total Bilirubin 0.20 AST 13 ALT 8 L Alkaline Phosphatase 69 Total Protein 6.5 Albumin 4.3 Globulin 2.0 Albumin/Globulin Ratio 2.0 Amylase 48 Lipase 51 Urine Source CLEAN CATCH Urine Color YELLOW Urine Clarity SL. CLOUDY A Urine pH 7.0 Ur Specific [place] 1.010 Urine Protein TRACE A Urine Ketones NEGATIVE Urine Blood 4+ Urine Nitrite NEGATIVE Urine Bilirubin NEGATIVE Urine Urobilinogen NORMAL Urine Microscopic RBC 20-40 A Urine WBC TRACE A Urine Microscopic WBC <10 Ur Epithelial Cells <10 Urine Bacteria 1+ Urine Glucose NEGATIVE <Ana Paula Chowdhury - Last Filed: 12/09/16 16:17> - PLAN OF CARE/RESULTS Progress/Plan/Lab Results: Laboratory Results - last 24 hr 12/09/16 12/09/16 12/09/16 12:07 12:07 13:25 WBC 4.80 RBC 4.11 L Hgb 13.3 Hct 38.9 MCV 94.6 MCH 32.4 H MCHC 34.2 RDW Std Deviation 13.2 Plt Count 163 MPV 9.3 Immature Gran % (Auto) 0.0 Neut % (Auto) 54.2 Lymph % (Auto) 30.6 [place] % (Auto) 13.8 H Eos % (Auto) 0.8 Baso % (Auto) 0.6 Immature Gran # (Auto) 0.00 Neut # (Auto) 2.60 Lymph # (Auto) 1.47 [place] # (Auto) 0.66 H Eos # (Auto) 0.04 Baso # (Auto) 0.03 Sodium 138 Potassium 3.4 L Chloride 107 Carbon Dioxide 22 L Anion Gap 9 BUN 10 Creatinine 0.7 Estimated GFR/1.73 m2 > 60 BUN/Creatinine Ratio 14 Glucose 75 Calculated Osmolality 273 Calcium 9.0 Total Bilirubin 0.20 AST 13 ALT 8 L Alkaline Phosphatase 69 Total Protein 6.5 Albumin 4.3 Globulin 2.0 Albumin/Globulin Ratio 2.0 Amylase 48 Lipase 51 Urine Source CLEAN CATCH Urine Color YELLOW Urine Clarity SL. CLOUDY A Urine pH 7.0 Ur Specific [place] 1.010 Urine Protein TRACE A Urine Ketones NEGATIVE Urine Blood 4+ Urine Nitrite NEGATIVE Urine Bilirubin NEGATIVE Urine Urobilinogen NORMAL Urine Microscopic RBC 20-40 A Urine WBC TRACE A Urine Microscopic WBC <10 Ur Epithelial Cells <10 Urine Bacteria 1+ Urine Glucose NEGATIVE Orders Category Date Time Status Saline Loc NOW Care 12/09/16 11:53 Active NPO Diet 12/09/16 11:49 Completed FLAT/UPRIGHT ABD/1 VIEW CHEST [RAD] Stat Exams 12/09/16 12:07 Completed RENAL STONE SEARCH [CT] Stat Exams 12/09/16 15:46 Completed AMYLASE [CHEM] Stat Lab 12/09/16 12:07 Completed CBC WITH ELECTRONIC DIFF [HEME] Stat Lab 12/09/16 12:07 Completed COMPREHENSIVE METABOLIC PANEL [CHEM] Stat Lab 12/09/16 12:07 Completed LIPASE [CHEM] Stat Lab 12/09/16 12:[address] W/POSS RFLX CULT [URINALYSIS] Stat Lab 12/09/16 13:25 Completed URINE CULTURE [RM] Routine Lab 12/09/16 14:09 Re[address] URINE DRUG SCREEN PL Stat Lab 12/09/16 13:25 Received 0.9% Sodium Chloride Inj [Ns] 1,000 ml Med 12/09/16 11:54 Discontinued IV 999 mls/hr Hydromorphone [Dilaudid] Med 12/09/16 11:53 Discontinued 0.5 mg IM NOW ONE Morphine Med 12/09/16 11:54 Discontinued 2 mg IV NOW ONE Morphine Med 12/09/16 15:46 Discontinued 4 mg IM NOW ONE Potassium Chloride E.r. [Klor-Con] Med 12/09/16 16:22 Discontinued 40 meq PO NOW ONE Promethazine [Phenergan] Med 12/09/16 11:54 Discontinued 12.5 mg IV NOW ONE Sodium Chloride 0.9% Med 12/09/16 11:54 Discontinued 10 ml INJ NOW ONE Vital Signs Temp Pulse Resp BP Pulse Ox 12/09/16 14:00 98.7 F 78 20 132/066 99 12/09/16 11:40 98.7 F 81 16 124/87 99 cefaclor [From Ceclor] Allergy (Severe, Verified 12/09/16 11:45) SWELLING erythromycin base [Erythromycin Base] Allergy (Severe, Verified 12/09/16 11:45) SWELLING Topiramate [Topamax] 200 mg PO BID 05/16/15 Oxycodone HCl/Acetaminophen [Percocet 10-325 mg Tablet] 1 each PO PRN PRN Pantoprazole [Protonix] 40 mg PO DAILY@0700 12/03/16 Pregabalin [Lyrica] 25 mg PO HS 12/03/16 Sertraline HCl [Zoloft] 100 mg PO DAILY 12/03/16 Sucralfate 1 gm PO 4XDAY 12/03/16 Dicyclomine [Bentyl] 10 mg PO TID AC #30 capsule 12/09/16 Naloxegol Oxalate [Movantik] 12.5 mg PO DAILY #20 tablet 12/09/16 Sulfamethoxazole/Trimethoprim [Bactrim Ds Tablet] 1 each PO BID #10 tablet 12/09 Laboratory 12/09/16 12/09/16 12/09/16 13:25 12:07 12:07 WBC 4.80 RBC 4.11 L Hgb 13.3 Hct 38.9 MCV 94.6 MCH 32.4 H MCHC 34.2 RDW Std Deviation 13.2 Plt Count 163 MPV 9.3 Immature Gran % (Auto) 0.0 Neut % (Auto) 54.2 Lymph % (Auto) 30.6 [place] % (Auto) 13.8 H Eos % (Auto) 0.8 Baso % (Auto) 0.6 Immature Gran # (Auto) 0.00 Neut # (Auto) 2.60 Lymph # (Auto) 1.47 [place] # (Auto) 0.66 H Eos # (Auto) 0.04 Baso # (Auto) 0.03 Sodium 138 Potassium 3.4 L Chloride 107 Carbon Dioxide 22 L Anion Gap 9 BUN 10 Creatinine 0.7 Estimated GFR/1.73 m2 > 60 BUN/Creatinine Ratio 14 Glucose 75 Calculated Osmolality 273 Calcium 9.0 Total Bilirubin 0.20 AST 13 ALT 8 L Alkaline Phosphatase 69 Total Protein 6.5 Albumin 4.3 Globulin 2.0 Albumin/Globulin Ratio 2.0 Amylase 48 Lipase 51 Urine Source CLEAN CATCH Urine Color YELLOW Urine Clarity SL. CLOUDY A Urine pH 7.0 Ur Specific [place] 1.010 Urine Protein TRACE A Urine Ketones NEGATIVE Urine Blood 4+ Urine Nitrite NEGATIVE Urine Bilirubin NEGATIVE Urine Urobilinogen NORMAL Urine Microscopic RBC 20-40 A Urine WBC TRACE A Urine Microscopic WBC <10 Ur Epithelial Cells <10 Urine Bacteria 1+ Urine Glucose NEGATIVE - REASSESSMENT Reassessment #1 Time Reassessed: 16:44 Status: improving (Pt looks comfortable and walks around at ER befoer the Morphine shot given. I consulted Dr. Cox in person for her pelvic fluids. Dr. Burton believes it was an ovulation vs. Ovarian cyst rupture, and compared to her most recent CT scan. The amount of the free fluid is not very concerned. I explained the findings to pt and her , both expressed understanding. Pt has Percocet 10mg as home meds.) <Tomasa Al - Last Filed: 12/09/16 16:48> Departure <Ana Paula Chowdhury - Last Filed: 12/09/16 16:17> - Departure Time of Disposition Order: 16:46 Certified Medical Emergency: Emergent <Tomasa Al - Last Filed: 12/09/16 16:48> - Departure DIAGNOSIS: Acute UTI, Ovarian cyst rupture, Free fluid in pelvis Abdominal pain Qualifiers: Abdominal location: left lower quadrant Qualified Code(s): R10.32 - Left lower quadrant pain Constipation Qualifiers: Constipation type: slow transit constipation Qualified Code(s): K59.01 - Slow transit constipation Disposition: HOME 01 Condition: Stable Additional Instructions: Follow up with your GI doctor for your endoscopy. ED Follow Up Instructions: You have been treated by a care provider in the Emergency Department. These instructions are being provided to you so you can have an understanding of how to care for yourself upon discharge. Upon discharge from the Emergency Department, you are responsible for making arrangements for follow-up care by a physician of your choice. Take all prescribed medications as directed. Return to the Emergency Department immediately for any new or worsening symptoms. You may call the Physician Referral phone number at [phone] to obtain a list of Physicians who are taking new patients. Prescriptions: Sulfamethoxazole/Trimethoprim [Bactrim Ds Tablet] 1 each PO BID #10 tablet Dicyclomine [Bentyl] 10 mg PO TID AC #30 capsule Naloxegol Oxalate [Movantik] 12.5 mg PO DAILY #20 tablet Referrals: None,PCP [Primary Care Provider] - Carlin Ayala MD [STAFF PHYSICIAN] - Forms: Return to School/Parent Work Instructions: Dicyclomine tablets or capsules, Urinary Tract Infection, Easy-to -Read, Constipation, Adult, Sulfamethoxazole; Trimethoprim, SMX-TMP tablets, Naloxegol oral tablets Attestation - Scribe Verification/Attestation Scribe:: Ana Paula Chowdhury Acting as Scribe for:: Tomasa Al Scribe documention review:: This chart was documented by a scribe and accurately reflects the service the provider performed and the decisions made by the provider. <Ana Paula Chowdhury - Last Filed: 12/09/16 16:17> Physician Attestation
[2016-12-09] MEDS ORDERED: KLOR-CON PO ONE (16:22)
--- NOTE | 2016-12-09 16:37 | Diag Imaging Result Document ---
PROCEDURE NAME: RENAL STONE SEARCH - 12/09/2016 CT UROGRAM WITHOUT CONTRAST: FINDINGS: The current study is compared to the previous contrast examination of 11/28/2016. There are multiple stones present in both kidneys measuring up to 4 mm on the right side. On the left there is a caliceal stone which exceeds 4 mm. There is hydronephrosis on the left side, particularly in the lower pole which is similar in appearance to the previous study. There is no evidence of ureterolithiasis, however. There is some stool throughout the colon. The small bowel is not distended. The gallbladder is not distended and there is no evidence of stones. The appendix is normal in appearance. There is a small amount of free fluid in the pelvis. The regional skeleton is stable in appearance. IMPRESSION: Bilateral nephrolithiasis without evidence of ureterolithiasis. No evidence of bowel obstruction or other acute gastrointestinal abnormality. Nonspecific free pelvic fluid.
[2016-12-09 16:53] LABS: UR AMPHETAMINES QUAL NONE DETECTED (NONE DETECT); UR BARBITUATES QUAL NONE DETECTED (NONE DETECT); UR BENZODIAZEPIN QUAL NONE DETECTED (NONE DETECT); UR CANNABINOIDS QUAL NONE DETECTED (NONE DETECT); UR COCAINE QUAL NONE DETECTED (NONE DETECT); UR MDMA QUAL NONE DETECTED (NONE DETECT); UR METHADONE QUAL NONE DETECTED (NONE DETECT); UR METHAMPHETAMINE QUAL NONE DETECTED (NONE DETECT); UR OPIATES QUAL NONE DETECTED (NONE DETECT); UR OXYCODONE QUAL PRESUMPTIVE POSITIVE (NONE DETECT); UR PCP QUAL NONE DETECTED (NONE DETECT); UR TCA QUAL NONE DETECTED (NONE DETECT)
== END 2016-12-09 18:42 | disposition home or self-care (01) ==
LOC: P.ED 11:39
DX: N39.0 Urinary tract infection, site not specified (principal); N83.202 Unspecified ovarian cyst, left side; K59.01 Slow transit constipation; N20.0 Calculus of kidney; R10.13 Epigastric pain; R10.9 Unspecified abdominal pain; R10.84 Generalized abdominal pain; K62.5 Hemorrhage of anus and rectum; R10.816 Epigastric abdominal tenderness; R10.819 Abdominal tenderness, unspecified site; R68.83 Chills (without fever); R10.32 Left lower quadrant pain; M54.9 Dorsalgia, unspecified; R11.2 Nausea with vomiting, unspecified; R56.9 Unspecified convulsions; Z79.899 Other long term (current) drug therapy
CPT/HCPCS: 74022; 74176; 80053; 80305; 81001; 82150; 83690; 85025; 87088; 96360; 96372; J1170; J2270; J2550; J7030